=== PATIENT | female | born 1970 | race Caucasian/White ===

== ENCOUNTER 2021-04-30 08:07 | Emergency (ER) | payer BC ==
[2021-04-30 08:48] VITALS: BMI 15.6
[2021-04-30] MEDS ORDERED: CASIRIVIMAB/IMDEVIMAB 10 ML in SODIUM CHLORIDE 100 ML IVPB ONE (09:11)
[2021-04-30 12:38] VITALS: BP 98/58; PULSE 93
[2021-04-30 12:39] VITALS: TEMP 98.6
== END 2021-04-30 13:10 | disposition home or self-care (01) ==
LOC: JCOVINFU 08:07
DX: U07.1 COVID-19 (principal)
CPT/HCPCS: 99284-25; Q0240